=== PATIENT | male | born 1985 | race Two or more races ===

== ENCOUNTER 2021-10-25 07:39 | Emergency (ER) | payer SELFPAY ==
[2021-10-25] MEDS ORDERED: Aspirin 81 MG Tab.Chew PO ONE (08:19)
[2021-10-25] MEDS ORDERED: Sodium Chloride 0.9% 10 ML Syringe FLUSH PRN (08:19)
[2021-10-25] MEDS ORDERED: Morphine 2 MG/ML SYRINGE IVPUSH PRN (08:19)
== END 2021-10-25 10:40 | disposition home or self-care (01) ==
LOC: JD.ED 07:39
DX: R07.89 Other chest pain (principal)
CPT/HCPCS: 36415; 71045; 71045-26; 80053; 84484; 85025; 85379; 93005; 93010; 96374; 99284; 99285-25; A9270-GY; J2270; J3490